=== PATIENT | female | born 1995 | race African-American/Black ===

== ENCOUNTER → 2022-02-01 | Emergency (ER) | payer MEDICAID, OTHER ==
[~2022-02-01] VITALS: Ht 175.3 cm; Wt 61.2 kg
[~2022-02-01] MED LIST: HYDR25CA PO; IBUP600T27 PO
[2022-02-01 16:36] VITALS: BP 117/70
== END | disposition home or self-care (01) ==
LOC: ER 15:51
DX: S39.012A Strain of muscle, fascia and tendon of lower back, initial encounter (principal); F41.9 Anxiety disorder, unspecified; V43.62XA Car passenger injured in collision with other type car in traffic accident, initial encounter; Y93.89 Activity, other specified; Y92.89 Other specified places as the place of occurrence of the external cause; Y99.8 Other external cause status
CPT/HCPCS: 72100